=== PATIENT | male | born 1980 | race African-American/Black ===

== ENCOUNTER 2017-06-18 15:19 | Emergency (ER) | payer SELFPAY ==
[~2017-06-18 15:19] MED LIST: ISOVUE-370 76%-LOCM 1 ML ONE
--- NOTE | 2017-06-18 16:16 | RAD ---
THREE VIEWS OF THE RIGHT RIBS 06/18/17 COMPARISON: None. HISTORY: Pain. FINDINGS: No displaced fracture is identified. IMPRESSION: No evidence for displaced right sided rib fracture. POS: [facility]
[2017-06-18] MEDS ORDERED: Ketorolac Tromethamine 60 MG/2 ML VIAL ONE (16:36)
[2017-06-18 16:58] LABS: #Eosinphils 0.2 thou/uL (0.0-0.7); #Lymphocytes 1.5 thou/uL (1.20-3.40); #Neutrophils 5.6 thou/uL (1.40-6.50); %Basophils 0.4 % (0.0-1.0); %Eosinophils 2.3 % (0.0-10.0); %Lymphocytes 17.8 % (21.0-51.0); %Monocytes 11.5 % (0.0-10.0); Hematocrit 52.6 % (42.0-52.0); Red Blood Cell (RBC) Count 6.02 mill/uL (4.70-6.10); White Blood Cell (WBC) Count 8.3 thou/uL (4.8-10.8)
[2017-06-18 17:14] LABS: ALT (SGPT) 12 U/L (8-55); AST (SGOT) 17 U/L (5-34); Alkaline Phosphatase 67 U/L (40-150); Anion Gap 16 mmol/L (10-20); BUN (Urea Nitrogen) 11 mg/dL (8.9-20.6); Bilirubin, Total 0.4 mg/dL (0.2-1.2); Calc. Creatinine Clearance 0 mL/min (70-130); Calcium 10.4 mg/dL (7.8-10.44); Carbon Dioxide 22 mmol/L (22-29); Chloride 103 mmol/L (98-107); Estimated GFR-MDRD 84; Globulin 3.9 g/dL (2.4-3.5); Protein, Total 8.8 g/dL (6.0-8.3)
--- NOTE | 2017-06-18 17:36 | CT ---
CT ABDOMEN AND PELVIS WITH IV CONTRAST 06/18/17 Multiple axial tomograms obtained through the abdomen and pelvis with IV enhancement. Oral contrast w as not given. HISTORY: Abdominal pain. Right side abdominal pain. Injury to right side of abdomen. FINDINGS: Lung bases clear. Liver, spleen, and pancreas unremarkable. Adrenal glands and kidneys are unremarkable. No evidence of solid organ injury identified. Bowel loops normal caliber. Appendix appears normal. Colon unremarkab le. Aorta is unremarkable. No adenopathy identified. The osseous structures including bony pelvis appear intact. IMPRESSION: No acute intra-abdominal injury identified. CT LOWER THORACIC AND LUMBAR SPINE: Sagittal and coronal images obtained of the lower thoracic and lumbar spine. The vertebrae maintain n ormal height and alignment. There is no compression deformity. No evidence of acute fracture. POS: [facility]
== END 2017-06-18 18:00 | disposition home or self-care (01) ==
LOC: ERS 15:19
DX: S20.211A Contusion of right front wall of thorax, initial encounter (principal); F17.210 Nicotine dependence, cigarettes, uncomplicated; W22.8XXA Striking against or struck by other objects, initial encounter; Y92.69 Other specified industrial and construction area as the place of occurrence of the external cause; Y99.0 Civilian activity done for income or pay
CPT/HCPCS: 74177; 80053; 85025; 96374; 99406; J1885

== ENCOUNTER 2017-08-08 10:34 | Emergency (ER) | payer SELFPAY ==
--- NOTE | 2017-08-08 11:55 | RAD ---
RADIOGRAPH LUMBAR SPINE 3 VIEWS: Date: 08/08/17 HISTORY: 37-year-old male with low back pain. COMPARISON: None. FINDINGS: There are five lumbar-type vertebrae. Vertebral body heights are maintained. There is no spondylolist hesis. There is a mild right lateral convexity curvature centered at L4-5. There is enlargement of th e right L5 transverse process which may or may not pseudoarticulate with the right S1 transverse proc ess. There is moderate disc space narrowing at L5-S1. The rest of the disc spaces are maintained. Lakisha tebral body heights are maintained. IMPRESSION: 1. Mild to moderate degenerative disc disease at L5-S1. 2. Transitional level on the right side at L5-S1. POS: [facility]
[2017-08-08 12:04] LABS: Bilirubin Negative (Negative); Blood, Urine Negative (Negative); Clarity CLEAR (Clear); Glucose, Urine (Dipstick) Negative (Negative); Leukocyte Negative (Negative); Nitrite Negative (Negative); Protein, Urine (Dipstick) Negative (Neg-Trace); Specific Gravity, Urine 1.016 (1.002-1.036); Urobilinogen 0.2 mg/dL (0.2-1.0)
== END 2017-08-08 12:34 | disposition home or self-care (01) ==
LOC: ERS 10:34
DX: M51.36 Other intervertebral disc degeneration, lumbar region (principal); F17.210 Nicotine dependence, cigarettes, uncomplicated
CPT/HCPCS: 72100; 81003

== ENCOUNTER 2017-12-30 04:57 | Emergency (ER) | payer SELFPAY ==
--- NOTE | 2017-12-30 08:48 | RAD ---
AP VIEW CHEST: HISTORY: Chest pain. FINDINGS: AP view chest was obtained on 12/30/17. The lungs are well aerated. No evidence of active intrathoracic disease is seen. No evidence of eff usions, pneumonia, or pneumothorax seen. IMPRESSION: Unremarkable AP view chest. POS: [facility]
== END 2017-12-30 05:47 | disposition home or self-care (01) ==
LOC: ERS 04:57
DX: R07.9 Chest pain, unspecified (principal); Z71.6 Tobacco abuse counseling; F17.210 Nicotine dependence, cigarettes, uncomplicated
CPT/HCPCS: 71045; 93005; 99406

== ENCOUNTER 2018-08-06 10:55 | Emergency (ER) | payer SELFPAY ==
[2018-08-06] MEDS ORDERED: Ketorolac Tromethamine 30 MG/ML VIAL ONE (11:51)
[2018-08-06] MEDS ORDERED: Bupivacaine 0.5% 10 ML VIAL ONE (11:52)
== END 2018-08-06 12:15 | disposition home or self-care (01) ==
LOC: ERS 10:55
DX: K03.81 Cracked tooth (principal); F17.210 Nicotine dependence, cigarettes, uncomplicated; I10 Essential (primary) hypertension
CPT/HCPCS: 64400; 96372; J1885; J3490

== ENCOUNTER 2018-09-22 17:07 | Emergency (ER) | payer SELFPAY | END 2018-09-22 20:23 | disposition home or self-care (01) | LOC: ERS 17:07 | DX: J06.9 Acute upper respiratory infection, unspecified (principal); F17.210 Nicotine dependence, cigarettes, uncomplicated | CPT/HCPCS: 87804; 99283 ==

== ENCOUNTER 2018-10-06 11:14 | Emergency (ER) | payer SELFPAY | END 2018-10-06 12:45 | disposition home or self-care (01) | LOC: ERS 11:14 | DX: M25.512 Pain in left shoulder (principal); F17.210 Nicotine dependence, cigarettes, uncomplicated | CPT/HCPCS: 99281 ==

== ENCOUNTER 2018-11-21 13:26 | Emergency (ER) | payer SELFPAY | END 2018-11-21 14:19 | disposition home or self-care (01) | LOC: ERS 13:26 | DX: B02.9 Zoster without complications (principal); F17.210 Nicotine dependence, cigarettes, uncomplicated | CPT/HCPCS: 99282 ==

== ENCOUNTER 2019-04-20 10:52 | Emergency (ER) | payer SELFPAY ==
[2019-04-20 12:20] LABS: #Eosinphils 0.2 thou/uL (0.0-0.7); #Lymphocytes 2.1 thou/uL (1.20-3.40); #Monocytes 0.8 thou/uL (0.11-0.59); #Neutrophils 5.9 thou/uL (1.40-6.50); %Basophils 0.2 % (0.0-1.0); %Eosinophils 2.3 % (0.0-10.0); %Monocytes 8.9 % (0.0-10.0); %Neutrophils 65.5 % (42.0-75.0); Hemoglobin 15.8 g/dL (14.0-18.0); Mean Corpuscular Hemoglobin 28.8 pg (27.0-31.0); Mean Corpuscular Volume 87.1 fL (78.0-98.0); Mean Platelet Volume 7.5 fL (7.4-10.4); Platelet Count 244 thou/uL (130-400); RBC Distribution Width 12.7 % (11.5-14.5); Red Blood Cell (RBC) Count 5.48 mill/uL (4.70-6.10)
[2019-04-20 12:44] LABS: ALT (SGPT) 11 U/L (8-55); AST (SGOT) 14 U/L (5-34); Albumin 3.9 g/dL (3.5-5.0); Alkaline Phosphatase 44 U/L (40-150); Anion Gap 10 mmol/L (10-20); BUN (Urea Nitrogen) 10 mg/dL (8.9-20.6); Bilirubin, Total 0.2 mg/dL (0.2-1.2); Calc. Creatinine Clearance 0 mL/min (70-130); Calcium 9.2 mg/dL (7.8-10.44); Carbon Dioxide 25 mmol/L (22-29); Chloride 108 mmol/L (98-107); Estimated GFR-MDRD Greater than 90; Globulin 2.3 g/dL (2.4-3.5); Glucose 85 mg/dL (70-105); Potassium 4.3 mmol/L (3.5-5.1); Protein, Total 6.2 g/dL (6.0-8.3); Sodium 139 mmol/L (136-145)
== END 2019-04-20 12:50 | disposition home or self-care (01) ==
LOC: ERS 10:52
DX: R61 Generalized hyperhidrosis (principal); F17.210 Nicotine dependence, cigarettes, uncomplicated
CPT/HCPCS: 36415; 36416; 80053; 85025; 99281

== ENCOUNTER 2019-05-31 15:04 | Emergency (ER) | payer SELFPAY | END 2019-05-31 18:40 | disposition home or self-care (01) | LOC: ERS 15:04 | DX: R10.9 Unspecified abdominal pain (principal); R11.2 Nausea with vomiting, unspecified; R51 Headache | CPT/HCPCS: 99281 ==

== ENCOUNTER 2019-06-11 20:01 | Emergency (ER) | payer SELFPAY ==
[2019-06-11] MEDS ORDERED: Ondansetron ODT 4 MG TAB ONE (22:05)
[2019-06-11] MEDS ORDERED: Acetaminophen 500 MG TAB ONE (22:05)
[2019-06-11 22:33] LABS: #Eosinphils 0.1 thou/uL (0.0-0.7); #Lymphocytes 1.7 thou/uL (1.20-3.40); #Monocytes 0.7 thou/uL (0.11-0.59); #Neutrophils 9.6 thou/uL (1.40-6.50); %Basophils 0.2 % (0.0-1.0); %Eosinophils 0.6 % (0.0-10.0); %Lymphocytes 13.7 % (21.0-51.0); %Monocytes 6.1 % (0.0-10.0); %Neutrophils 79.4 % (42.0-75.0); Hemoglobin 15.3 g/dL (14.0-18.0); Mean Corpuscular HGB CONC 32.9 g/dL (32.0-36.0); Mean Corpuscular Hemoglobin 28.4 pg (27.0-31.0); Mean Corpuscular Volume 86.4 fL (78.0-98.0); Mean Platelet Volume 7.5 fL (7.4-10.4); Platelet Count 244 thou/uL (130-400); RBC Distribution Width 12.4 % (11.5-14.5); Red Blood Cell (RBC) Count 5.36 mill/uL (4.70-6.10); White Blood Cell (WBC) Count 12.1 thou/uL (4.8-10.8)
[2019-06-11 22:50] LABS: ALT (SGPT) 11 U/L (8-55); AST (SGOT) 15 U/L (5-34); Albumin 4.2 g/dL (3.5-5.0); Alkaline Phosphatase 39 U/L (40-110); Anion Gap 11 mmol/L (10-20); BUN (Urea Nitrogen) 7 mg/dL (8.9-20.6); Bilirubin, Total 0.3 mg/dL (0.2-1.2); Calc. Creatinine Clearance 0 mL/min (70-130); Calcium 9.5 mg/dL (7.8-10.44); Carbon Dioxide 27 mmol/L (22-29); Chloride 106 mmol/L (98-107); Estimated GFR-MDRD Greater than 90; Globulin 2.3 g/dL (2.4-3.5); Glucose 74 mg/dL (70-105); Potassium 4.2 mmol/L (3.5-5.1); Protein, Total 6.5 g/dL (6.0-8.3); Sodium 140 mmol/L (136-145)
== END 2019-06-11 23:18 | disposition home or self-care (01) ==
LOC: ERS 20:01
DX: R11.2 Nausea with vomiting, unspecified (principal); R19.7 Diarrhea, unspecified; F17.210 Nicotine dependence, cigarettes, uncomplicated
CPT/HCPCS: 36415; 80053; 85025; 99284; Q0162

== ENCOUNTER 2019-09-09 17:48 | Emergency (ER) | payer SELFPAY ==
--- NOTE | 2019-09-09 18:27 | CT ---
CT Brain WO Con: 09/09/2019 6:11 PM CLINICAL HISTORY: Headache. IMAGING TECHNIQUE: Multiple CT images were obtained of the brain without IV contrast. COMPARISON: None. FINDINGS: Brain: No acute infarct or hemorrhage is evident. No midline shift. Ventricles: Normal. No hydrocephalus. Skull: Intact. Visualized Paranasal sinuses: Clear. Mastoid air cells:Clear. Extracranial soft tissues:Normal. IMPRESSION: No acute intracranial abnormality.
--- NOTE | 2019-09-09 18:27 | RAD ---
Chest AP view INDICATION: Chest pain COMPARISON: December 30, 2017 FINDINGS: Lungs:The lungs are clear Cardiac silhouette:The cardiomediastinal silhouette appears within normal limits. Pulmonary vasculature:Normal Pleural spaces:No pleural effusion or pneumothorax is demonstrated. Upper abdomen:No abnormality seen. Osseous structures: No acute osseous abnormality. Additional findings:None. IMPRESSION: No acute cardiopulmonary abnormality.
[2019-09-09 18:33] LABS: #Basophils 0.1 thou/uL (0.0-0.2); #Eosinphils 0.4 thou/uL (0.0-0.7); #Lymphocytes 1.7 thou/uL (1.20-3.40); #Monocytes 0.7 thou/uL (0.11-0.59); #Neutrophils 4.1 thou/uL (1.40-6.50); %Basophils 0.8 % (0.0-1.0); %Eosinophils 5.7 % (0.0-10.0); %Lymphocytes 24.3 % (21.0-51.0); %Monocytes 10.3 % (0.0-10.0); %Neutrophils 58.9 % (42.0-75.0); Hemoglobin 14.9 g/dL (14.0-18.0); Mean Corpuscular Volume 85.1 fL (78.0-98.0); Mean Platelet Volume 7.7 fL (7.4-10.4); Platelet Count 277 thou/uL (130-400); RBC Distribution Width 12.6 % (11.5-14.5); Red Blood Cell (RBC) Count 5.32 mill/uL (4.70-6.10)
[2019-09-09 18:56] LABS: ALT (SGPT) 11 U/L (8-55); AST (SGOT) 17 U/L (5-34); Albumin 4.2 g/dL (3.5-5.0); Alkaline Phosphatase 52 U/L (40-110); Anion Gap 12 mmol/L (10-20); BUN (Urea Nitrogen) 9 mg/dL (8.9-20.6); Bilirubin, Total 0.3 mg/dL (0.2-1.2); Calc. Creatinine Clearance 0 mL/min (70-130); Calcium 9.3 mg/dL (7.8-10.44); Carbon Dioxide 26 mmol/L (22-29); Chloride 107 mmol/L (98-107); Estimated GFR-MDRD Greater than 90; Globulin 2.5 g/dL (2.4-3.5); Glucose 122 mg/dL (70-105); Potassium 4.4 mmol/L (3.5-5.1); Protein, Total 6.7 g/dL (6.0-8.3); Sodium 141 mmol/L (136-145)
== END 2019-09-09 22:30 | disposition home or self-care (01) ==
LOC: ERS 17:48
DX: R07.89 Other chest pain (principal); F17.210 Nicotine dependence, cigarettes, uncomplicated
CPT/HCPCS: 70450; 71045; 80053; 83880; 84484; 85025; 93005

== ENCOUNTER 2019-12-20 01:02 | Emergency (ER) | payer SELFPAY | END 2019-12-20 01:21 | disposition home or self-care (01) | LOC: ERS 01:02 | DX: M25.462 Effusion, left knee (principal); F17.210 Nicotine dependence, cigarettes, uncomplicated | CPT/HCPCS: 99281 ==

== ENCOUNTER 2020-06-27 08:39 | Emergency (ER) | payer SELFPAY ==
[2020-06-27] MEDS ORDERED: Ketorolac Tromethamine 30 MG/ML VIAL ONE (08:52)
--- NOTE | 2020-06-27 09:22 | RAD ---
LEFT HAND 3 VIEWS: HISTORY: Injury. Left hand pain. FINDINGS/IMPRESSION: There is a mildly angulated fracture involving the neck of the 5th metacarpal. POS: [facility]
== END 2020-06-27 09:37 | disposition home or self-care (01) ==
LOC: ERS 08:39
DX: S62.337A Displaced fracture of neck of fifth metacarpal bone, left hand, initial encounter for closed fracture (principal); F17.210 Nicotine dependence, cigarettes, uncomplicated; W22.8XXA Striking against or struck by other objects, initial encounter
CPT/HCPCS: 26605; 96372; J1885